=== PATIENT | male | born 1950 | race Caucasian/White ===

== ENCOUNTER 2018-09-27 09:19 | Day surgery (SDC) | payer MEDICAID, OTHER ==
[~2018-09-27] VITALS: Ht 167.6 cm; Wt 74.8 kg
[~2018-09-27 09:19] MED LIST: ASA5EC PO; BENZ200C52 PO; CLOP75TA33 PO; GABA-529 PO; LOP25 PO; NITR0.4T49 SL; NITRO; OMEP40CA34 PO; PRAV40TA58 PO; TAMS0.4C31 PO; TIMO5DRO27 OP; [UNRECOGNIZED DRUG - REMARK]
[2018-09-27] MEDS ORDERED: LIDOCAINE HCL 1% 20ML VIAL (Pyxis) INJ ONE (11:09)
[2018-09-27] MEDS ORDERED: IODIXANOL 320MG/ML 100 ML BOTTLE IV ONE (11:09)
[2018-09-27] MEDS ORDERED: MIDAZOLAM HCL 2 MG/2 ML VIAL ONE (12:02)
[2018-09-27] MEDS ORDERED: FENTANYL CITRATE/PF 50MCG/ML 2ML VIAL ONE (12:02)
[2018-09-27] MEDS ORDERED: BENA5TAB6 PO (12:04)
[2018-09-27] MEDS ORDERED: ASPI-1159 PO (12:04)
[2018-09-27] MEDS ORDERED: ALBU90AE IH (12:04)
[2018-09-27] MEDS ORDERED: LIP40 PO (12:04)
[2018-09-27] MEDS ORDERED: ONDANSETRON HCL 4MG/2ML INJ IV PRN (13:00)
[2018-09-27] MEDS ORDERED: ACETAMINOPHEN 325MG TABLET PO PRN (13:00)
[2018-09-27] MEDS ORDERED: NICARDIPINE 100MCG/ML 10ML VIAL (CATH LAB) IV ONE (14:37)
[2018-09-27] MEDS ORDERED: NITROGLYCERIN 50MCG/ML 10ML VIAL (CATH LAB) IV ONE (14:37)
[2018-09-27] MEDS ORDERED: HEPARIN SODIUM 1,000 UNIT/1ML VIAL IV ONE (15:07)
[2018-09-27] MEDS ORDERED: ATROPINE SULFATE 1MG/10ML SYR IV PRN (16:30)
== END 2018-09-27 18:50 | disposition home or self-care (01) ==
LOC: CCL 09:19
PROVIDERS: ATTEND Specialist
DX: I25.118 Atherosclerotic heart disease of native coronary artery with other forms of angina pectoris (principal); I25.2 Old myocardial infarction; I10 Essential (primary) hypertension; E78.5 Hyperlipidemia, unspecified; J44.9 Chronic obstructive pulmonary disease, unspecified; E11.9 Type 2 diabetes mellitus without complications; Z79.899 Other long term (current) drug therapy; Z79.82 Long term (current) use of aspirin; Z98.890 Other specified postprocedural states; Z95.1 Presence of aortocoronary bypass graft
CPT/HCPCS: 82962; 93459; 99152; C1760; C1769; C1887; J1644; J2250; J3010; J3490; Q9967; C1893; G0500

== ENCOUNTER 2022-06-21 20:38 | Emergency (ER) | payer MEDICAID ==
[~2022-06-21] VITALS: Ht 165.1 cm; Wt 70.0 kg
[~2022-06-21 20:38] MED LIST changes: +ALBU90AE IH; -ASA5EC PO; +ASPI-1497 PO; +BENA5TAB40 PO; -BENZ200C52 PO; +LIP40 PO; -LOP25 PO; -NITR0.4T49 SL; +OMEP40CA20 PO; -OMEP40CA34 PO; -PRAV40TA58 PO; -TAMS0.4C31 PO; -TIMO5DRO27 OP
[2022-06-21 20:42] VITALS: BP 136/73
[2022-06-21] MEDS ORDERED: MORPHINE SULFATE 4 MG/ML CPJ (NOT FOR IM USE) IV STA (20:48)
[2022-06-21 21:11] LABS: BASOPHILS % 0.4 % (0.0-2.0); EOSINOPHILS % 1.9 % (0.0-5.0); HEMATOCRIT. 36.7 % (42.0-52.0); HEMOGLOBIN. 12.2 g/dL (14.0-18.0); LYMPHOCYTES % 16.1 % (20.0-50.0); MEAN CORPUSCULAR HEMOGLOBIN 28.2 pg (28.0-32.0); MEAN CORPUSCULAR VOLUME 85.1 fL (80.0-94.0); MEAN PLATELET VOLUME 9.4 fl (7.4-10.4); MONOCYTES % 8.3 % (2.0-8.0); NEUTROPHILS % 73.3 % (40.0-76.0); PLATELET 172 x1000/uL (130-400); RED BLOOD CELL COUNT 4.32 mill/uL (4.7-6.1); RED CELL DISTRIBUTION WIDTH 13.9 % (11.6-14.6)
[2022-06-21 21:18] LABS: CHLORIDE 103 mEq/L (98-107)
[2022-06-21 21:19] LABS: INR 1.1
== END 2022-06-21 23:14 | disposition home or self-care (01) ==
LOC: ER 20:38
DX: K40.90 Unilateral inguinal hernia, without obstruction or gangrene, not specified as recurrent (principal); I10 Essential (primary) hypertension; Z98.890 Other specified postprocedural states
CPT/HCPCS: 36415; 80053; 85025; 99283

== ENCOUNTER 2022-08-21 17:05 | Emergency (ER) | payer MEDICAID ==
[~2022-08-21] VITALS: Ht 165.1 cm; Wt 70.0 kg
[2022-08-21] MEDS ORDERED: ACETAMINOPHEN 325MG TABLET PO ONE (17:30)
[2022-08-21 18:19] LABS: HEMATOCRIT. 35.9 % (42.0-52.0); HEMOGLOBIN. 11.8 g/dL (14.0-18.0); MEAN CORPUSCULAR HEMOGLOBIN 28.2 pg (28.0-32.0); MEAN CORPUSCULAR VOLUME 85.6 fL (80.0-94.0); MEAN PLATELET VOLUME 10.2 fl (7.4-10.4); PLATELET 151 x1000/uL (130-400); RED BLOOD CELL COUNT 4.19 mill/uL (4.7-6.1); RED CELL DISTRIBUTION WIDTH 14.2 % (11.6-14.6)
[2022-08-21 18:26] LABS: CHLORIDE 107 mEq/L (98-107)
[2022-08-21 20:42] LABS: PLATELET ESTIMATE NORMAL
[2022-08-22 01:52] VITALS: BP 159/84
[2022-08-22] MEDS ORDERED: HYDR-4001 MT (02:21)
== END 2022-08-22 02:55 | disposition home or self-care (01) ==
LOC: ER 17:05
DX: K40.90 Unilateral inguinal hernia, without obstruction or gangrene, not specified as recurrent (principal); I10 Essential (primary) hypertension; H40.9 Unspecified glaucoma; Z98.61 Coronary angioplasty status; Z79.82 Long term (current) use of aspirin
CPT/HCPCS: 36415; 80053; 85025; 99283